=== PATIENT | male | born 1945 ===

== ENCOUNTER 2017-05-27 22:02 | Emergency (ER) | payer MEDICARE, OTHER ==
[2017-05-27 22:08] VITALS: BP 159/79; PULSE 80; RESP 18; TEMP 98.4; O2SAT 97
[2017-05-27] MEDS ORDERED: Oxycodone/Acetaminophen 5/325 mg Tab PO STA (22:57)
[2017-05-27] MEDS ORDERED: Oxycodone/Acetaminophen 5/325 mg Tab ONE (23:04)
--- NOTE | 2017-05-27 23:06 | ED PDOC ---
HPI: General Adult Time Seen by Provider: 05/27/17 22:34 Chief Complaint (Nursing): Upper Extremity Problem/Injury History Per: Patient Additional Complaint(s): Pt. states he's developed atraumatic R wrist pain x 1 day. Reports he does have a hx of RA and does get pain to that wrist often. He took his Tramadol today without any relief prompting ED visit. Also reports he has been compliant with his weekly Enbrel (last dose today). Denies trauma, fever, numbness, tingling. Past Medical History Reviewed: Historical Data, Nursing Documentation, Vital Signs Vital Signs: Last Vital Signs Temp 98.4 F 05/27/17 22:05 Pulse 80 05/27/17 22:05 Resp 18 05/27/17 22:05 BP 159/79 H 05/27/17 22:05 Pulse Ox 97 05/27/17 23:07 - Medical History PMH: Arthritis, HTN, Hypercholesterolemia - Family History Family History: States: No Known Family Hx - Home Medications Home Medications: Ambulatory Orders Medication Instructions Recorded Phenylephrine 0.25% 15 ml NS ASDIR #1 bottle 01/05/16 [Rolando-Synephrine 15 Ml] Ibuprofen [Motrin] 600 mg PO TID PRN #30 tab 10/26/16 Methylprednisolone [Medrol Dose 4 mg PO DAILY #1 packet 10/26/16 Pack (21 tabs)] traMADol [Ultram] 50 mg PO Q8 PRN #20 tab 10/26/16 Lidocaine 5% [Lidoderm] 1 ea TD DAILY PRN #10 patch 05/28/17 - Allergies Allergies/Adverse Reactions: Allergies Allergy/AdvReac Type Severity Reaction Status Date / Time No Known Allergies Allergy Verified 10/26/16 15:45 Review of Systems ROS Statement: Except As Marked, All Systems Reviewed And Found Negative Physical Exam - Physical Exam Appears: Positive for: Well, Non-toxic, No Acute Distress Skin: Positive for: Normal Color, Warm. Negative for: Rash Pulses-Radial (L): 2+ Pulses-Radial (R): 2+ Extremity: Positive for: Capillary Refill (< 2 seconds of RUE), Other (R wrist with moderate swelling, tenderness without deformity, warmth, erythema, break in skin integrity). Negative for: Normal ROM (limited ROM of R wrist secondary to pain) - ECG O2 Sat by Pulse Oximetry: 97 - Radiology X-Ray: Interpreted by Me (Wrist x-ray) X-Ray Interpretation: No Acute Disease - Progress ED Course And Treament: Toradol 15mg IM, percocet 1 tab PO given. Wrist xray ordered. Pt. states he will attempt to f/u with his chair and couch maker, Dr. Taylor, Tomorrow. Encouraged to f/u with Dr. Taylor. Re-evaluation Time: 00:50 Condition: Re-examined, Improving,but remains with symptoms Disposition - Clinical Impression Clinical Impression: Wrist pain - Patient ED Disposition Is Patient to be Admitted: No - Disposition Disposition: Routine/Home Disposition Time: 00:53 Condition: STABLE Additional Instructions: Follow up with Dr. Taylor tomorrow WITHOUT FAIL. Return to ED immediately if symptoms persist or worsen. Prescriptions: Lidocaine 5% [Lidoderm] 1 ea TD DAILY PRN #10 patch PRN Reason: pain Instructions: Rheumatoid Arthritis (ED) Print Language: INDONESIAN
--- NOTE | 2017-05-28 11:12 | RAD ---
PROCEDURE: Right Wrist Radiographs. HISTORY: Pain COMPARISON: None. FINDINGS: BONES: Bone alignment and mineralization are normal. There is no acute displaced fracture or bone destruction. . JOINTS: Normal. The proximal and distal carpal rows are maintained. SOFT TISSUES: Normal. OTHER FINDINGS: None. IMPRESSION: No acute fracture or dislocation.
== END 2017-05-28 01:16 | disposition home or self-care (01) ==
LOC: H.ER 22:02
DX: M25.531 Pain in right wrist (principal)
CPT/HCPCS: 73110; 96372; 99282; J1885